=== PATIENT | male | born 1970 | race Caucasian/White ===

== ENCOUNTER 2024-07-29 16:19 | Emergency (ER) | payer SELFPAY ==
[~2024-07-29] VITALS: Ht 167.6 cm; Wt 75.0 kg
[2024-07-29 16:23] VITALS: BP 153/80; PULSE 105; RESP 16; TEMP 98.5; O2SAT 98
[2024-07-29 17:21] LABS: BASOPHILS % 0.4 % (0.0-2.0); HEMATOCRIT. 45.5 % (42.0-52.0); HEMOGLOBIN. 16.1 g/dL (14.0-18.0); LYMPHOCYTES % 10.8 % (20.0-50.0); MEAN CORPUSCULAR HEMOGLOBIN 30.5 pg (28.0-32.0); MEAN CORPUSCULAR HGB CONC 35.4 g/dL (31.0-37.0); MEAN CORPUSCULAR VOLUME 86.2 fL (80.0-94.0); MEAN PLATELET VOLUME 7.6 fl (7.4-10.4); NEUTROPHILS % 82.8 % (40.0-76.0); PLATELET 230 x1000/uL (130-400); RED BLOOD CELL COUNT 5.28 mill/uL (4.7-6.1); RED CELL DISTRIBUTION WIDTH 12.6 % (11.6-14.6)
[2024-07-29 17:27] LABS: CHLORIDE 104 mEq/L (98-107); POTASSIUM 3.3 mEq/L (3.5-5.1); SODIUM 138 mEq/L (136-145)
[2024-07-29 17:28] LABS: CALCIUM 9.5 mg/dL (8.7-10.4); CARBON DIOXIDE 29 mEq/L (21-32)
[2024-07-29 17:33] LABS: CREATININE 1.1 mg/dL (0.6-1.3); GLUCOSE 113 mg/dL (70-105); UREA NITROGEN BLOOD 14 mg/dL (9-23)
[2024-07-29 17:34] LABS: TROPONIN I HIGH SENSITIVITY 5 ng/L (3.0-53)
[2024-07-29] MEDS: AMLODIPINE 2.5MG TABLET PO ONE (18:01)
== END 2024-07-29 20:33 | disposition home or self-care (01) ==
LOC: ER 16:19
DX: I10 Essential (primary) hypertension (principal)
CPT/HCPCS: 36415; 80048; 84484; 85025; 93005; 99284